=== PATIENT | male | born 1985 | race Caucasian/White ===

== ENCOUNTER 2017-05-27 15:13 | Emergency (ER) | payer OTHER ==
[2017-05-27] MEDS: ALBUTEROL 90 MCG/ACT 8GM HFA INHALER INH (19:15)
== END 2017-05-27 19:51 | disposition home or self-care (01) ==
LOC: M ED 15:13
DX: J20.9 Acute bronchitis, unspecified (principal)
CPT/HCPCS: 99282